=== PATIENT | male | born 1970 | race Caucasian/White ===

== ENCOUNTER 2019-02-10 16:04 | Inpatient (IN) | payer OTHER ==
[~2019-02-10] VITALS: Ht 185.4 cm; Wt 86.2 kg
[2019-02-15] MEDS ORDERED: TAMSULOSIN HCL0.4 MG PO (14:48)
== END 2019-02-15 16:13 | disposition home or self-care (01) | DRG 660 ==
LOC: ER 16:04 → MEDJ 21:37 → ICU-2 21:37 → SEC-K 02-11 12:55 → MEDJ 02-11 13:57 → SEC-K 02-11 14:10 → MEDJ 02-11 14:14 → SURH 02-13 15:46 → MEDJ 02-13 16:47
PROVIDERS: Urology; ADMIT Internal Medicine
PROC: BT43ZZZ Ultrasonography of Bilateral Kidneys (ICD-10-PCS; 2019-02-10)
PROC: BW21ZZZ Computerized Tomography (CT Scan) of Abdomen and Pelvis (ICD-10-PCS; 2019-02-11)
PROC: BW21ZZZ Computerized Tomography (CT Scan) of Abdomen and Pelvis (ICD-10-PCS; 2019-02-11)
PROC: 0T778DZ Dilation of Left Ureter with Intraluminal Device, Via Natural or Artificial Opening Endoscopic (ICD-10-PCS; principal; 2019-02-13 12:00)
DX: N17.8 Other acute kidney failure (principal); R65.10 Systemic inflammatory response syndrome (SIRS) of non-infectious origin without acute organ dysfunction; N20.1 Calculus of ureter; N39.0 Urinary tract infection, site not specified; Z94.0 Kidney transplant status; N13.5 Crossing vessel and stricture of ureter without hydronephrosis; R50.9 Fever, unspecified